=== PATIENT | female | born 1970 ===

== ENCOUNTER 2017-08-30 11:23 | Inpatient (IN) ==
[2017-08-30] MEDS ORDERED: ACETAMINOPHEN 325 MG TABLET PO PRN (13:56)
[2017-08-30] MEDS ORDERED: ONDANSETRON 4 MG/2 ML VIAL IV PRN (13:56)
[2017-08-30] MEDS ORDERED: DEXTROSE 5% NACL 0.9% 1,000 ML IV SCH (14:00)
[2017-08-30 16:39] LABS: Bilirubin,Total 1.4 MG/DL (0.2-1.0); Calcium 8.7 MG/DL (8.5-10.1); Osmolality,Calculated 275.5 MOS/KG (273-304); Potassium 4.9 MMOL/L (3.5-5.1); Total Protein 6.6 G/DL (6.4-8.3)
[2017-08-30 16:40] LABS: Basophils # 0.1 10*3/uL (0.0-0.2); Basophils % 0.8 % (0.0-0.8); Eosinophils # 0.1 10*3/uL (0.0-0.87); Eosinophils % 0.8 % (0.00-10.9); Hemoglobin 10.9 GM/DL (12.0-16.0); Immature Granulocytes Absolute 0.08 #; Lymphocytes # 2.5 10*3/uL (1.4-4.0); Lymphocytes % 29.8 % (21.3-54.2); Mean Corpuscular HGB Conc 29.5 GM/DL (32-36); Mean Corpuscular Hemoglobin 24 PG (27-34); Mean Corpuscular Volume 80.7 FL (87-102); Mean Platelet Volume 13.4 FL (9.6-12.0); Monocytes % 12.4 % (1.7-12.7); NRBC # 0.08 10*3/uL; Neutrophils # 4.6 10*3/uL (1.4-7.4); Neutrophils % 55.2 % (38.7-73.9); Platelet Count 263 T/CUMM (130-400); Red Blood Count 4.57 MC/CUMM (3.8-5.5); Red Cell Distribution Width 16.9 % (9.3-17.3); White Blood Count 8.3 T/CUMM (4-12)
[2017-08-30 16:41] LABS: Hematocrit 36.9 VOL% (35.7-47.0)
[2017-08-30 16:46] LABS: Troponin I Only 0.815 NG/ML (0.00-0.045)
[2017-08-30] MEDS ORDERED: FUROSEMIDE 20 MG/2 ML VIAL IV SCH (17:00)
[2017-08-30 19:34] LABS: Apearance,Urine CLEAR (Clear); Bacteria,Urine Occasional /HPF (Few); Bilirubin,Urine Negative (Negative); Blood, Urine Negative (Negative); Glucose,Urine (UA) Negative (Negative); Hyaline Casts,Urine 1 /LPF (0-3); Ketones,Urine Negative (Negative); Mucus,Urine Occasional /LPF (Occasional); Nitrite,Urine Negative (Negative); Protein,Urine Negative; RBC,Urine 1 /HPF (0-4); Squamous Epithelial Cell,Urine Occasional /HPF (0-10); Urine Color Yellow (Yellow); Urine Specific Gravity 1.005 (1.001-1.035); Urine Urobilinogen < 2.0 EU/DL (0.2-1.0); WBC,Urine 1 /HPF (0-6)
[2017-08-30 20:56] LABS: Troponin I Only 0.776 NG/ML (0.00-0.045)
[2017-08-30] MEDS ORDERED: ENOXAPARIN 40 MG/0.4 ML SYRINGE SUBCUT SCH (21:00)
[2017-08-30] MEDS: CARVEDILOL 6.25 MG TABLET PO SCH (21:06)
[2017-08-30] MEDS: DOCUSATE SODIUM 100 MG CAPSULE PO SCH (21:06)
[2017-08-30] MEDS: traMADol 50 MG TABLET PO PRN (22:33)
[2017-08-31] MEDS: ENOXAPARIN 100 MG/ML SYRINGE SUBCUT SCH ×2 (05:58→17:04)
[2017-08-31 06:07] LABS: Basophils # 0.1 10*3/uL (0.0-0.2); Basophils % 0.8 % (0.0-0.8); Eosinophils # 0.2 10*3/uL (0.0-0.87); Eosinophils % 2.6 % (0.00-10.9); Hematocrit 33.7 VOL% (35.7-47.0); Hemoglobin 9.9 GM/DL (12.0-16.0); Immature Granulocytes % 0.7 %; Immature Granulocytes Absolute 0.05 #; Lymphocytes # 2.4 10*3/uL (1.4-4.0); Lymphocytes % 32.8 % (21.3-54.2); Mean Corpuscular HGB Conc 29.4 GM/DL (32-36); Mean Corpuscular Hemoglobin 24 PG (27-34); Mean Corpuscular Volume 80.4 FL (87-102); Monocytes # 0.9 10*3/uL (0.11-0.8); Monocytes % 12.4 % (1.7-12.7); NRBC # 0.04 10*3/uL; Neutrophils # 3.7 10*3/uL (1.4-7.4); Neutrophils % 50.7 % (38.7-73.9); Platelet Count 219 T/CUMM (130-400); Red Blood Count 4.19 MC/CUMM (3.8-5.5); Red Cell Distribution Width 16.9 % (9.3-17.3); White Blood Count 7.3 T/CUMM (4-12)
[2017-08-31 06:36] LABS: Calcium 8.5 MG/DL (8.5-10.1); Magnesium 1.9 MG/DL (1.8-2.4); Osmolality,Calculated 276.5 MOS/KG (273-304); Potassium 4.5 MMOL/L (3.5-5.1)
[2017-08-31 06:43] LABS: Troponin I Only 0.727 NG/ML (0.00-0.045)
[2017-08-31 06:48] LABS: Albumin 2.7 G/DL (3.4-5.0); Calcium 8.6 MG/DL (8.5-10.1); Osmolality,Calculated 276.5 MOS/KG (273-304); Potassium 4.5 MMOL/L (3.5-5.1); Risk Ratio 5.57; Total Protein 5.7 G/DL (6.4-8.3); VLDL CHOLESTEROL 15.8 MG/DL
[2017-08-31] MEDS: ASPIRIN EC 81 MG TABLET PO SCH (09:13)
[2017-08-31] MEDS: DOCUSATE SODIUM 100 MG CAPSULE PO SCH ×2 (09:13→21:44)
[2017-08-31] MEDS: CARVEDILOL 6.25 MG TABLET PO SCH ×2 (09:13→21:44)
[2017-08-31] MEDS: PANTOPRAZOLE 40 MG TABLET PO SCH (09:14)
[2017-08-31] MEDS: traMADol 50 MG TABLET PO PRN (09:14)
[2017-08-31] MEDS: LISINOPRIL 2.5 MG TABLET PO SCH (09:14)
[2017-08-31] MEDS: FUROSEMIDE 40 MG/4 ML VIAL IV SCH ×2 (09:15→16:55)
[2017-08-31] MEDS ORDERED: MAGNESIUM SULF RIDER 2 GM in PREMIX 1 EACH IV PRN (16:11)
[2017-08-31] MEDS ORDERED: POTASSIUM CHLORIDE RIDER 10 MEQ in PREMIX 1 EACH IV PRN (16:11)
[2017-08-31 17:46] LABS: Hepatitis A Ab IgM Quant 0.11 Index; Hepatitis A Ab IgM Result Negative (Negative); Hepatitis B Core IgM Quant 0.16 Index; Hepatitis B Core IgM Result Negative (Negative); Hepatitis B Surface Ag Quant < 0.10 Index; Hepatitis B Surface Ag Result Negative (Negative); Hepatitis C Virus Ab Quant 0.04 Index; Hepatitis C Virus Ab Result Negative (Negative)
[2017-09-01] MEDS ORDERED: diphenhydrAMINE CAP 25 MG CAPSULE PO ONE (05:00)
[2017-09-01] MEDS ORDERED: DIAZEPAM 5 MG TABLET PO ONE (05:00)
[2017-09-01] MEDS ORDERED: ASPIRIN 325 MG TABLET PO ONE (05:00)
[2017-09-01 05:44] LABS: Basophils # 0.1 10*3/uL (0.0-0.2); Basophils % 0.8 % (0.0-0.8); Eosinophils # 0.2 10*3/uL (0.0-0.87); Eosinophils % 3.3 % (0.00-10.9); Hematocrit 33.4 VOL% (35.7-47.0); Immature Granulocytes % 0.8 %; Immature Granulocytes Absolute 0.05 #; Lymphocytes # 2.1 10*3/uL (1.4-4.0); Lymphocytes % 31.5 % (21.3-54.2); Mean Corpuscular HGB Conc 29.9 GM/DL (32-36); Mean Corpuscular Hemoglobin 24 PG (27-34); Mean Corpuscular Volume 78.8 FL (87-102); Mean Platelet Volume 12.8 FL (9.6-12.0); Monocytes # 0.9 10*3/uL (0.11-0.8); Monocytes % 13.8 % (1.7-12.7); Neutrophils # 3.3 10*3/uL (1.4-7.4); Neutrophils % 49.8 % (38.7-73.9); Platelet Count 197 T/CUMM (130-400); Red Blood Count 4.24 MC/CUMM (3.8-5.5); Red Cell Distribution Width 16.9 % (9.3-17.3); White Blood Count 6.6 T/CUMM (4-12)
[2017-09-01 06:07] LABS: Calcium 8.2 MG/DL (8.5-10.1); Magnesium 1.8 MG/DL (1.8-2.4); Osmolality,Calculated 273.7 MOS/KG (273-304); Potassium 4.1 MMOL/L (3.5-5.1)
[2017-09-01] MEDS: ENOXAPARIN 100 MG/ML SYRINGE SUBCUT SCH (07:08)
[2017-09-01] MEDS: SODIUM CHLORIDE 0.9% 1,000 ML IV SCH (07:20)
[2017-09-01] MEDS ORDERED: VERAPAMIL 5 MG/2 ML VIAL ONE (08:42)
[2017-09-01] MEDS ORDERED: LIDOCAINE 1% 20 ML VIAL ONE (08:42)
[2017-09-01] MEDS ORDERED: NITROGLYCERIN DRIP 50 MG/250 ML BOTTLE IV ONE (08:42)
[2017-09-01] MEDS ORDERED: fentaNYL 100 MCG/2 ML VIAL ONE (09:17)
[2017-09-01] MEDS ORDERED: MIDAZOLAM 2 MG/2 ML VIAL ONE ×2 (09:17→11:56)
[2017-09-01] MEDS ORDERED: TICAGRELOR 90 MG TABLET ONE (12:07)
[2017-09-01] MEDS: TIROFIBAN 5,000 MCG/100 ML PREMIX IV SCH ×2 (12:18→19:00)
[2017-09-01] MEDS: FUROSEMIDE 40 MG/4 ML VIAL IV SCH ×2 (12:27→15:51)
[2017-09-01] MEDS: ASPIRIN EC 81 MG TABLET PO SCH (12:28)
[2017-09-01] MEDS: DOCUSATE SODIUM 100 MG CAPSULE PO SCH ×2 (12:46→21:10)
[2017-09-01] MEDS: LISINOPRIL 2.5 MG TABLET PO SCH (12:46)
[2017-09-01] MEDS: PANTOPRAZOLE 40 MG TABLET PO SCH (12:47)
[2017-09-01] MEDS: CARVEDILOL 6.25 MG TABLET PO SCH ×2 (12:47→21:10)
[2017-09-01] MEDS ORDERED: ROSUVASTATIN 20 MG TABLET PO SCH (21:00)
[2017-09-01] MEDS ORDERED: ROSUVASTATIN 10 MG TABLET PO SCH (21:00)
[2017-09-01] MEDS: TICAGRELOR 90 MG TABLET PO SCH (21:10)
[2017-09-01] MEDS: traMADol 50 MG TABLET PO PRN (21:10)
[2017-09-02] MEDS: TIROFIBAN 5,000 MCG/100 ML PREMIX IV SCH ×2 (00:44→06:05)
[2017-09-02] MEDS: SODIUM CHLORIDE 0.9% 1,000 ML IV SCH ×2 (03:43→06:06)
[2017-09-02 05:17] LABS: Basophils % 0.7 % (0.0-0.8); Eosinophils # 0.2 10*3/uL (0.0-0.87); Eosinophils % 3.4 % (0.00-10.9); Hematocrit 33.1 VOL% (35.7-47.0); Hemoglobin 9.8 GM/DL (12.0-16.0); Immature Granulocytes Absolute 0.06 #; Lymphocytes # 1.2 10*3/uL (1.4-4.0); Lymphocytes % 20.5 % (21.3-54.2); Mean Corpuscular HGB Conc 29.6 GM/DL (32-36); Mean Corpuscular Hemoglobin 23 PG (27-34); Mean Corpuscular Volume 78.8 FL (87-102); Mean Platelet Volume 12.8 FL (9.6-12.0); Monocytes # 0.7 10*3/uL (0.11-0.8); Monocytes % 12.4 % (1.7-12.7); Neutrophils # 3.7 10*3/uL (1.4-7.4); Platelet Count 203 T/CUMM (130-400)
[2017-09-02 05:40] LABS: Calcium 8.3 MG/DL (8.5-10.1); Magnesium 1.9 MG/DL (1.8-2.4); Osmolality,Calculated 276.5 MOS/KG (273-304); Potassium 3.6 MMOL/L (3.5-5.1)
[2017-09-02 05:49] LABS: Blood Urea Nitrogen 14 MG/DL (7-18); Calcium 7.9 MG/DL (8.5-10.1); Glucose 82 MG/DL (74-106); Osmolality,Calculated 280.3 MOS/KG (273-304); Potassium 3.6 MMOL/L (3.5-5.1); Sodium 141 MMOL/L (136-145)
[2017-09-02 05:59] LABS: Albumin 2.4 G/DL (3.4-5.0); Bilirubin,Direct 0.46 MG/DL (0.0-0.20); Bilirubin,Indirect 0.6 MG/DL (0.0-1.0); Bilirubin,Total 1.1 MG/DL (0.2-1.0); Total Protein 5.3 G/DL (6.4-8.3)
[2017-09-02 06:19] LABS: Troponin I Only 0.779 NG/ML (0.00-0.045)
[2017-09-02] MEDS: TICAGRELOR 90 MG TABLET PO SCH (10:27)
[2017-09-02] MEDS: DOCUSATE SODIUM 100 MG CAPSULE PO SCH (10:27)
[2017-09-02] MEDS: CARVEDILOL 6.25 MG TABLET PO SCH (10:27)
[2017-09-02] MEDS: PANTOPRAZOLE 40 MG TABLET PO SCH (10:27)
[2017-09-02] MEDS: LISINOPRIL 2.5 MG TABLET PO SCH (10:27)
[2017-09-02] MEDS: ASPIRIN EC 81 MG TABLET PO SCH (10:28)
[2017-09-02 11:41] VITALS: BP 121/78
== END 2017-09-02 14:11 | disposition home or self-care (01) | DRG 247 ==
LOC: N.TELEN 14:16
PROVIDERS: ADMIT Family Medicine; ATTEND Family Medicine
PROC: CLCCHCL (ICD-10-PCS; 2017-09-01 10:45)

== ENCOUNTER 2019-05-10 15:55 | Inpatient (IN) ==
[2019-05-10] MEDS ORDERED: diphenhydrAMINE CAP 25 MG CAPSULE PO PRN (16:17)
[2019-05-10] MEDS ORDERED: BISACODYL 5 MG TABLET PO PRN (16:17)
[2019-05-10] MEDS ORDERED: ONDANSETRON 4 MG/2 ML VIAL IV PRN (16:17)
[2019-05-10] MEDS ORDERED: MAGNESIUM SULF RIDER 4 GM in PREMIX 1 EACH IV PRN (16:17)
[2019-05-10] MEDS ORDERED: guaiFENesin/DM ER 600-30 MG TABLET PO PRN (16:17)
[2019-05-10] MEDS ORDERED: MAGNESIUM SULF RIDER 2 GM in PREMIX 1 EACH IV PRN (16:17)
[2019-05-10] MEDS ORDERED: ACETAMINOPHEN 325 MG TABLET PO PRN (16:17)
[2019-05-10] MEDS ORDERED: LACTULOSE 20 GM/30 ML UDCUP PO PRN (16:17)
[2019-05-10] MEDS ORDERED: ZALEPLON 5 MG CAPSULE PO PRN (16:17)
[2019-05-10] MEDS ORDERED: MORPHINE 4 MG/1 ML VIAL IV PRN (16:17)
[2019-05-10 18:05] LABS: Basophils # 0.1 10*3/uL (0.0-0.2); Basophils % 0.9 % (0.0-0.8); Eosinophils # 0.1 10*3/uL (0.0-0.87); Hematocrit 39.6 VOL% (35.7-47.0); Hemoglobin 12.2 GM/DL (12.0-16.0); Immature Granulocytes % 1.1 %; Immature Granulocytes Absolute 0.11 #; Lymphocytes # 2.7 10*3/uL (1.4-4.0); Lymphocytes % 26.7 % (21.3-54.2); Mean Corpuscular HGB Conc 30.8 GM/DL (32-36); Mean Corpuscular Volume 87.4 FL (87-102); Monocytes % 9.4 % (1.7-12.7); NRBC # 0.13 10*3/uL; Neutrophils % 60.9 % (38.7-73.9); Platelet Count 203 T/CUMM (130-400); Red Blood Count 4.53 MC/CUMM (3.8-5.5); Red Cell Distribution Width 14.7 % (9.3-17.3); White Blood Count 9.9 T/CUMM (4-12)
[2019-05-10 18:28] LABS: Troponin I 0.084 NG/ML (0.00-0.045)
[2019-05-10 18:30] LABS: Albumin 3.1 G/DL (3.4-5.0); Bilirubin,Total 1.1 MG/DL (0.2-1.0); Calcium 8.6 MG/DL (8.5-10.1); Osmolality,Calculated 282.4 MOS/KG (273-304); Thyroid Stimulating Hormone 0.994 uIU/ml (0.358-3.74); Total Protein 6.6 G/DL (6.4-8.3)
[2019-05-10] MEDS: ENOXAPARIN 40 MG/0.4 ML SYRINGE SUBCUT SCH (19:11)
[2019-05-10 19:54] LABS: Troponin I 0.072 NG/ML (0.00-0.045)
[2019-05-10] MEDS ORDERED: ALUMINUM/MAGNES/SIMETH MAX STR 30 ML UDCUP PO PRN (21:47)
[2019-05-10] MEDS: FUROSEMIDE 40 MG/4 ML VIAL IV SCH (22:06)
[2019-05-10] MEDS: DOBUTamine 500 MG/250 ML PREMIX IV PRN (22:18)
[2019-05-10 22:22] LABS: Troponin I 0.085 NG/ML (0.00-0.045)
[2019-05-11 00:46] LABS: Apearance,Urine CLEAR (Clear); Bacteria,Urine Occasional /HPF (Few); Bilirubin,Urine Negative (Negative); Blood, Urine Large mg/dL (Negative); Glucose,Urine (UA) Negative (Negative); Ketones,Urine Negative (Negative); Mucus,Urine Occasional /LPF (Occasional); Nitrite,Urine Negative (Negative); Protein,Urine Negative; RBC,Urine 42 /HPF (0-4); Squamous Epithelial Cell,Urine Occasional /HPF (0-10); Urine Color Colorless (Yellow); Urine Specific Gravity 1.005 (1.001-1.035); Urine Urobilinogen < 2.0 EU/DL (0.2-1.0); WBC,Urine <1 /HPF (0-6)
[2019-05-11] MEDS: POTASSIUM CHLORIDE 20 MEQ TABLET PO PRN ×3 (05:35→17:15)
[2019-05-11 07:59] LABS: Basophils # 0.1 10*3/uL (0.0-0.2); Basophils % 0.9 % (0.0-0.8); Eosinophils # 0.2 10*3/uL (0.0-0.87); Eosinophils % 1.9 % (0.00-10.9); Hematocrit 40.3 VOL% (35.7-47.0); Hemoglobin 12.4 GM/DL (12.0-16.0); Immature Granulocytes % 1.3 %; Lymphocytes # 1.8 10*3/uL (1.4-4.0); Lymphocytes % 22.5 % (21.3-54.2); Mean Corpuscular HGB Conc 30.8 GM/DL (32-36); Mean Platelet Volume 12.5 FL (9.6-12.0); Monocytes % 8.9 % (1.7-12.7); NRBC # 0.03 10*3/uL; Neutrophils % 64.5 % (38.7-73.9); Platelet Count 182 T/CUMM (130-400); Red Blood Count 4.63 MC/CUMM (3.8-5.5); Red Cell Distribution Width 14.6 % (9.3-17.3)
[2019-05-11 08:24] LABS: Calcium 9.4 MG/DL (8.5-10.1)
[2019-05-11] MEDS: PANTOPRAZOLE 40 MG TABLET PO SCH (09:59)
[2019-05-11] MEDS: carvediloL 12.5 MG TABLET PO SCH ×2 (09:59→21:19)
[2019-05-11] MEDS: FUROSEMIDE 40 MG/4 ML VIAL IV SCH ×2 (09:59→17:14)
[2019-05-11] MEDS: ASPIRIN EC 81 MG TABLET PO SCH (09:59)
[2019-05-11] MEDS: SACUBITRIL/VALSARTAN 49-51 MG TABLET PO SCH ×2 (09:59→21:20)
[2019-05-11] MEDS ORDERED: MAGNESIUM SULF RIDER 2 GM in PREMIX 1 EACH IV ONE (13:34)
[2019-05-11] MEDS: ENOXAPARIN 40 MG/0.4 ML SYRINGE SUBCUT SCH (17:14)
[2019-05-11] MEDS: SIMVASTATIN 10 MG TABLET PO SCH (21:20)
[2019-05-12 05:09] LABS: Basophils # 0.1 10*3/uL (0.0-0.2); Basophils % 0.9 % (0.0-0.8); Eosinophils # 0.4 10*3/uL (0.0-0.87); Eosinophils % 4.9 % (0.00-10.9); Hematocrit 45.4 VOL% (35.7-47.0); Hemoglobin 14.1 GM/DL (12.0-16.0); Immature Granulocytes % 0.9 %; Immature Granulocytes Absolute 0.07 #; Lymphocytes % 24.1 % (21.3-54.2); Mean Corpuscular HGB Conc 31.1 GM/DL (32-36); Mean Corpuscular Volume 85.3 FL (87-102); Mean Platelet Volume 12.8 FL (9.6-12.0); Monocytes % 10.3 % (1.7-12.7); Neutrophils % 58.9 % (38.7-73.9); Platelet Count 241 T/CUMM (130-400); Red Blood Count 5.32 MC/CUMM (3.8-5.5); Red Cell Distribution Width 14.5 % (9.3-17.3); White Blood Count 8.2 T/CUMM (4-12)
[2019-05-12 05:46] LABS: Calcium 9.7 MG/DL (8.5-10.1); Osmolality,Calculated 286.3 MOS/KG (273-304)
[2019-05-12] MEDS: DOBUTamine 500 MG/250 ML PREMIX IV PRN (07:27)
[2019-05-12] MEDS: POTASSIUM CHLORIDE 20 MEQ TABLET PO PRN (07:30)
[2019-05-12] MEDS: FUROSEMIDE 40 MG/4 ML VIAL IV SCH ×2 (07:30→16:52)
[2019-05-12] MEDS: ASPIRIN EC 81 MG TABLET PO SCH (10:55)
[2019-05-12] MEDS: PANTOPRAZOLE 40 MG TABLET PO SCH (10:55)
[2019-05-12] MEDS: carvediloL 12.5 MG TABLET PO SCH ×2 (10:56→21:33)
[2019-05-12] MEDS: SACUBITRIL/VALSARTAN 49-51 MG TABLET PO SCH ×2 (10:56→21:33)
[2019-05-12] MEDS ORDERED: SODIUM CHLORIDE 0.9% 300 ML IV ONE (16:16)
[2019-05-12] MEDS: ENOXAPARIN 40 MG/0.4 ML SYRINGE SUBCUT SCH (17:01)
[2019-05-12] MEDS: SIMVASTATIN 10 MG TABLET PO SCH (21:33)
[2019-05-13] MEDS: DOBUTamine 500 MG/250 ML PREMIX IV PRN (00:58)
[2019-05-13 02:41] LABS: Basophils # 0.1 10*3/uL (0.0-0.2); Basophils % 0.6 % (0.0-0.8); Eosinophils # 0.5 10*3/uL (0.0-0.87); Eosinophils % 5.4 % (0.00-10.9); Hematocrit 46.1 VOL% (35.7-47.0); Hemoglobin 14.2 GM/DL (12.0-16.0); Immature Granulocytes Absolute 0.09 #; Lymphocytes # 2.6 10*3/uL (1.4-4.0); Lymphocytes % 29.9 % (21.3-54.2); Mean Corpuscular HGB Conc 30.8 GM/DL (32-36); Mean Platelet Volume 12.2 FL (9.6-12.0); Monocytes % 11.5 % (1.7-12.7); Neutrophils % 51.6 % (38.7-73.9); Platelet Count 251 T/CUMM (130-400); Red Blood Count 5.36 MC/CUMM (3.8-5.5); Red Cell Distribution Width 14.7 % (9.3-17.3); White Blood Count 8.7 T/CUMM (4-12)
[2019-05-13 02:50] LABS: Calcium 9.6 MG/DL (8.5-10.1); Osmolality,Calculated 292.1 MOS/KG (273-304)
[2019-05-13] MEDS: carvediloL 12.5 MG TABLET PO SCH ×2 (08:18→21:03)
[2019-05-13] MEDS: FUROSEMIDE 40 MG/4 ML VIAL IV SCH ×3 (08:18→18:02)
[2019-05-13] MEDS: SACUBITRIL/VALSARTAN 49-51 MG TABLET PO SCH ×2 (08:19→21:03)
[2019-05-13] MEDS: ASPIRIN EC 81 MG TABLET PO SCH (08:19)
[2019-05-13] MEDS: PANTOPRAZOLE 40 MG TABLET PO SCH (08:19)
[2019-05-13] MEDS: POTASSIUM CHLORIDE 20 MEQ TABLET PO PRN (08:26)
[2019-05-13] MEDS: ENOXAPARIN 40 MG/0.4 ML SYRINGE SUBCUT SCH ×2 (17:31→18:02)
[2019-05-13] MEDS ORDERED: DOBUTamine 500 MG/250 ML PREMIX IV SCH (18:00)
[2019-05-13] MEDS: SIMVASTATIN 10 MG TABLET PO SCH (21:03)
[2019-05-14 01:53] LABS: Basophils # 0.1 10*3/uL (0.0-0.2); Basophils % 0.9 % (0.0-0.8); Eosinophils # 0.4 10*3/uL (0.0-0.87); Hematocrit 49.2 VOL% (35.7-47.0); Hemoglobin 15.4 GM/DL (12.0-16.0); Immature Granulocytes % 1.1 %; Lymphocytes # 2.6 10*3/uL (1.4-4.0); Lymphocytes % 29.9 % (21.3-54.2); Mean Corpuscular HGB Conc 31.3 GM/DL (32-36); Mean Corpuscular Volume 84.5 FL (87-102); Mean Platelet Volume 12.1 FL (9.6-12.0); Monocytes % 13.1 % (1.7-12.7); Platelet Count 249 T/CUMM (130-400); Red Blood Count 5.82 MC/CUMM (3.8-5.5); Red Cell Distribution Width 14.7 % (9.3-17.3); White Blood Count 8.8 T/CUMM (4-12)
[2019-05-14 02:08] LABS: Calcium 9.2 MG/DL (8.5-10.1); Osmolality,Calculated 283.7 MOS/KG (273-304)
[2019-05-14] MEDS: carvediloL 12.5 MG TABLET PO SCH ×2 (09:36→23:33)
[2019-05-14] MEDS: ASPIRIN EC 81 MG TABLET PO SCH (09:36)
[2019-05-14] MEDS: PANTOPRAZOLE 40 MG TABLET PO SCH (09:36)
[2019-05-14] MEDS: SACUBITRIL/VALSARTAN 49-51 MG TABLET PO SCH ×2 (09:41→22:06)
[2019-05-14] MEDS: FUROSEMIDE 40 MG TABLET PO SCH ×2 (09:41→15:34)
[2019-05-14] MEDS ORDERED: DIAZEPAM 5 MG TABLET PO ONE (10:49)
[2019-05-14] MEDS ORDERED: POTASSIUM CHLORIDE RIDER 10 MEQ in PREMIX 1 EACH IV PRN (10:49)
[2019-05-14] MEDS ORDERED: diphenhydrAMINE CAP 25 MG CAPSULE PO ONE (10:49)
[2019-05-14] MEDS ORDERED: LIDOCAINE 1% 20 ML VIAL ONE (13:43)
[2019-05-14] MEDS ORDERED: HEPARIN/NACL 0.9% 2 UNITS/ML 0 ML IV ONE (13:43)
[2019-05-14] MEDS ORDERED: MIDAZOLAM 2 MG/2 ML VIAL ONE (13:44)
[2019-05-14] MEDS ORDERED: fentaNYL 100 MCG/2 ML VIAL ONE (13:45)
[2019-05-14] MEDS ORDERED: SODIUM CHLORIDE 0.9% 1,000 ML IV SCH (14:30)
[2019-05-14] MEDS: ENOXAPARIN 40 MG/0.4 ML SYRINGE SUBCUT SCH (18:01)
[2019-05-14] MEDS: SIMVASTATIN 10 MG TABLET PO SCH (22:05)
[2019-05-15 03:30] LABS: Basophils # 0.1 10*3/uL (0.0-0.2); Basophils % 0.7 % (0.0-0.8); Eosinophils # 0.3 10*3/uL (0.0-0.87); Eosinophils % 3.8 % (0.00-10.9); Hematocrit 46.4 VOL% (35.7-47.0); Hemoglobin 14.4 GM/DL (12.0-16.0); Immature Granulocytes Absolute 0.08 #; Lymphocytes # 2.2 10*3/uL (1.4-4.0); Lymphocytes % 25.9 % (21.3-54.2); Mean Corpuscular Volume 84.8 FL (87-102); Mean Platelet Volume 12.1 FL (9.6-12.0); Monocytes % 11.4 % (1.7-12.7); Neutrophils % 57.2 % (38.7-73.9); Platelet Count 261 T/CUMM (130-400); Red Blood Count 5.47 MC/CUMM (3.8-5.5); Red Cell Distribution Width 14.6 % (9.3-17.3); White Blood Count 8.4 T/CUMM (4-12)
[2019-05-15 03:38] LABS: Calcium 9.6 MG/DL (8.5-10.1); Osmolality,Calculated 291.3 MOS/KG (273-304)
[2019-05-15] MEDS ORDERED: FUROSEMIDE 40 MG TABLET PO SCH (09:00)
[2019-05-15] MEDS ORDERED: carvediloL 6.25 MG TABLET PO SCH (09:00)
[2019-05-15] MEDS: SACUBITRIL/VALSARTAN 49-51 MG TABLET PO SCH (09:24)
[2019-05-15] MEDS: PANTOPRAZOLE 40 MG TABLET PO SCH (09:25)
[2019-05-15] MEDS: ASPIRIN EC 81 MG TABLET PO SCH (09:25)
[2019-05-15 12:32] VITALS: BP 84/51
== END 2019-05-15 14:01 | disposition home or self-care (01) | DRG 287 ==
LOC: N.TELEN 16:26
PROVIDERS: ADMIT Internal Medicine Cardiovascular Disease; ATTEND Internal Medicine Cardiovascular Disease
PROC: CLCCHCL (ICD-10-PCS; 2019-05-14 15:15)